=== PATIENT | female | born 1950 | race Caucasian/White ===

== ENCOUNTER 2023-07-06 11:37 | Outpatient (CLI) | payer MEDICARE | END 2023-07-06 11:38 | disposition home or self-care (01) | LOC: SCSMRI 11:37 | PROVIDERS: ATTEND Student in an Organized Health Care Education/Training Program | DX: G45.9 Transient cerebral ischemic attack, unspecified (principal); R26.89 Other abnormalities of gait and mobility | CPT/HCPCS: 70553 ==

== ENCOUNTER 2024-03-20 09:31 | Outpatient (CLI) | payer MEDICARE | END 2024-03-20 09:32 | disposition home or self-care (01) | LOC: BICMAMMO 09:31 | PROVIDERS: ATTEND Student in an Organized Health Care Education/Training Program | DX: Z13.820 Encounter for screening for osteoporosis (principal); M81.0 Age-related osteoporosis without current pathological fracture; M85.89 Other specified disorders of bone density and structure, multiple sites; Z78.0 Asymptomatic menopausal state | CPT/HCPCS: 77080 ==

== ENCOUNTER 2024-08-21 09:43 | Outpatient (CLI) | payer MEDICARE | END 2024-08-21 09:44 | disposition home or self-care (01) | LOC: ULT 09:43 | PROVIDERS: ATTEND Student in an Organized Health Care Education/Training Program | DX: G45.9 Transient cerebral ischemic attack, unspecified (principal) | CPT/HCPCS: 93880 ==

== ENCOUNTER 2024-08-28 08:43 | Outpatient (CLI) | payer MEDICARE | END 2024-08-28 08:44 | disposition home or self-care (01) | LOC: BICMAMMO 08:43 | PROVIDERS: ATTEND Student in an Organized Health Care Education/Training Program | DX: Z08 Encounter for follow-up examination after completed treatment for malignant neoplasm (principal); Z85.3 Personal history of malignant neoplasm of breast | CPT/HCPCS: 77066; G0279 ==

== ENCOUNTER 2025-08-29 09:01 | Outpatient (CLI) | payer MEDICARE | END 2025-08-29 09:02 | disposition home or self-care (01) | LOC: BICMAMMO 09:01 | PROVIDERS: ATTEND Student in an Organized Health Care Education/Training Program | DX: Z12.31 Encounter for screening mammogram for malignant neoplasm of breast (principal); Z80.3 Family history of malignant neoplasm of breast; Z85.3 Personal history of malignant neoplasm of breast; Z98.890 Other specified postprocedural states | CPT/HCPCS: 77063; 77067 ==